=== PATIENT | male | born 1955 | race African-American/Black ===

== ENCOUNTER → 2016-09-23 | Outpatient (CLI) | payer MEDICARE ==
--- NOTE | ~2016-09-23 | US5 ---
[facility] A Service of [facility] / [facility] RADIOLOGY TEXT RESULTS PATIENT: LUIS GUTIÉRREZ LOCATION: [facility] : 59 UNIT #: [id number] AGE: [address]: Francoise Boyle MD SEX: M ORDER DR: [id number] [address] [address] [id number] O MR#: [id number] Acc #: [id number] NAME: LUIS GUTIÉRREZ : 1955 SEX: M STUDY DATE/TIME: 09/23/2016 10:41 UNIT: [facility] ROOM: STUDY DESCRIPTION: US Abdominal Complete Attending Physician: Francoise Boyle M.D. Ordering Physician: Francoise Boyle M.D. Primary Care Physician: Francoise Boyle M.D. MEDICAL IMAGING REPORT This report is preliminary unless electronic signature is present. EXAM Abdominal ultrasound complete, 09/23/2016. HISTORY Abdominal fullness for 1 month. FINDINGS The liver demonstrates an increase in echotexture with attenuation of the ultrasound beam characteristic of fatty infiltration. No cystic or solid mass lesions were seen in the liver. The intrahepatic bile ducts are not dilated. The gallbladder is not visualized. It is presumed surgically absent. Correlation with patient history is suggested. The common bile duct and pancreas are poorly visualized due to excessive bowel gas. The spleen measures 10.3 cm in greatest diameter. The visualized portions of the abdominal aorta and inferior vena cava are within normal limits. The kidneys are normal bilaterally. IMPRESSION 1. Fatty infiltration of the liver. 2. The gallbladder is not visualized. It is presumed surgically absent. Correlation with patient history is suggested. 3. Poor visualization of the common bile duct and pancreas due to excessive bowel gas. Dictated by... Byron Morley M.D. THIS IS AN ELECTRONICALLY VERIFIED REPORT Byron Morley M.D. at 09/24/2016 8:05 AM KRT/tmw [facility] A Service of [facility] / [facility] RADIOLOGY TEXT RESULTS PATIENT: LUIS GUTIÉRREZ LOCATION: [facility] #: [id number] : 59 UNIT #: [id number] AGE: [address]: Francoise Boyle MD SEX: M ORDER DR: TD: 09/23/2016 15:59 JOB #: [id number] MEDICAL IMAGING REPORT Page 1 of 1
== END | disposition home or self-care (01) ==
LOC: SGUS 10:20
DX: R19.8 Other specified symptoms and signs involving the digestive system and abdomen (principal); E66.9 Obesity, unspecified; K76.0 Fatty (change of) liver, not elsewhere classified
CPT/HCPCS: 76700